=== PATIENT | female | born 1960 | race Caucasian/White ===

== ENCOUNTER → 2017-04-26 | Outpatient (CLI) | payer OTHER ==
[2017-04-26 14:42] LABS: TOTAL 25(OH) VITAMIN D 33.5 NG/ML (30.0-100.0)
[2017-04-26 14:42] LABS: PTH INTACT 36.2 PG/ML (18.5-88.0)
[2017-04-26 15:14] LABS: CALCIUM LEVEL 9.8 MG/DL (8.5-10.1); PHOSPHORUS LEVEL 3.7 MG/DL (2.5-4.9)
== END ==
LOC: M WUC 10:45
DX: M81.0 Age-related osteoporosis without current pathological fracture (principal)
CPT/HCPCS: 82310

== ENCOUNTER 2017-07-28 07:33 | Day surgery (SDC) | payer OTHER ==
[2017-07-28] MEDS ORDERED: PROPOFOL 200 MG/20 ML VIAL As Ordered ×2 (08:12)
[2017-07-28] MEDS ORDERED: LIDOCAINE 2% INJ 100 MG/5 ML SDV (FOR ANES.) As Ordered (08:12)
[2017-07-28] MEDS: NS 1,000 ML IV (08:29)
== END 2017-07-28 10:01 | disposition home or self-care (01) ==
LOC: M OPP 07:33
DX: Z12.11 Encounter for screening for malignant neoplasm of colon (principal); Z86.010 Personal history of colon polyps; K64.8 Other hemorrhoids; K57.30 Diverticulosis of large intestine without perforation or abscess without bleeding; R00.8 Other abnormalities of heart beat; R01.1 Cardiac murmur, unspecified; E78.5 Hyperlipidemia, unspecified; E03.9 Hypothyroidism, unspecified; M19.90 Unspecified osteoarthritis, unspecified site; M51.9 Unspecified thoracic, thoracolumbar and lumbosacral intervertebral disc disorder; M50.30 Other cervical disc degeneration, unspecified cervical region; R51 Headache; M85.80 Other specified disorders of bone density and structure, unspecified site; Z78.0 Asymptomatic menopausal state; F17.210 Nicotine dependence, cigarettes, uncomplicated; Z88.5 Allergy status to narcotic agent; Z88.0 Allergy status to penicillin; Z88.8 Allergy status to other drugs, medicaments and biological substances; Z79.82 Long term (current) use of aspirin; Z79.899 Other long term (current) drug therapy; Z80.0 Family history of malignant neoplasm of digestive organs; Z80.42 Family history of malignant neoplasm of prostate
CPT/HCPCS: 45378

== ENCOUNTER → 2017-10-12 | Outpatient (CLI) | payer OTHER ==
[2017-10-12 14:55] LABS: CALCIUM LEVEL 9.2 MG/DL (8.5-10.1)
[2017-10-12 15:03] LABS: TOTAL 25(OH) VITAMIN D 25.3 NG/ML (30.0-100.0)
== END ==
LOC: M WUC 13:10
DX: M81.0 Age-related osteoporosis without current pathological fracture (principal); E55.9 Vitamin D deficiency, unspecified
CPT/HCPCS: 82310

== ENCOUNTER → 2019-08-09 | Outpatient (CLI) | payer OTHER ==
[~2019-08-09] MED LIST: ALPR0.25 PO; ASPI81TA26 PO; CALC600T57 PO; IBUP80TA PO; LEVO88TA3 PO; ROSU20TA5 PO; VITA100067 PO
--- NOTE | 2019-08-10 10:39 | REP ---
REASON: Atraumatic neck pain. COMPARISON: 02/27/2012 Vertebral body height and alignment is unchanged from the prior exam. There is disc space narrowing seen C4-5 and C5-6. There is an unchanged 2 mm anterolisthesis of C4 on C5. The facet joints are well aligned bilaterally. The intravertebral foramina are unchanged and again seen to be ample bilaterally. There is no evidence of limitation of flexion or extension radiographically. IMPRESSION: Stable-appearing chronic changes. Electronically Signed by Delfino Magaña DO 08/12/2019 10:09 A
--- NOTE | 2019-08-10 10:40 | REP ---
REASON: Back pain. PRIORS: None. There is a moderate dextroconvex upper thoracic curve. The pedicles are intact bilaterally. There is anterior disc space narrowing at every level with mild anterior lipping. Vertebral body height and alignment is within normal limits. IMPRESSION: Chronic changes, as described above. Electronically Signed by Delfino Magaña DO 08/12/2019 10:09 A
--- NOTE | 2019-08-10 10:45 | REP ---
REASON: Chronic low back pain. COMPARISON: 03/09/2015 L4-5 disc space narrowing has increased from the prior exam and there is now universal L5-S1 disc space narrowing as well. Vertebral body height and alignment is unchanged. The pedicles are again seen to be intact bilaterally. There is no spondylolysis or spondylolisthesis. Degenerative facet joint change is again present at L4-5 and L5-S1 bilaterally. IMPRESSION: Chronic changes as described above. Electronically Signed by Delfino Magaña DO 08/12/2019 10:09 A
== END ==
LOC: M RAD 15:44
PROVIDERS: ATTEND Physician Assistant
DX: M54.2 Cervicalgia (principal)

== ENCOUNTER → 2020-08-20 | Outpatient (CLI) | payer OTHER ==
--- NOTE | 2020-08-21 04:11 | REP ---
INDICATION: PAIN COMPARISON: None. TECHNIQUE: AP and frog-lateral views of the left hip FINDINGS: Generalized age-related changes include subtle increased sclerosis to the acetabulum with minimal joint space narrowing. No further overt osteoarthritic or significant degenerative changes are appreciated. No evidence for acute or healed injury. Surrounding soft tissues are normal. IMPRESSION: Mild generalized age-related changes. <Electronically signed by Garett Skinner > 08/21/20 [id number]
--- NOTE | 2020-08-21 04:14 | REP ---
INDICATION: PAIN COMPARISON: None. TECHNIQUE: Single AP view of the pelvis. FINDINGS: Mild symmetric age-related changes to the bilateral hips includes joint space narrowing with minimal increased sclerosis to the acetabula. No acute fracture or dislocation. IMPRESSION: Mild symmetric degenerative changes to the bilateral hips suggested. No acute fracture or dislocation. <Electronically signed by Garett Skinner > 08/21/20 [id number]
== END ==
LOC: M WUC 11:22
PROVIDERS: ATTEND Physician Assistant
DX: M25.552 Pain in left hip (principal); M16.12 Unilateral primary osteoarthritis, left hip

== ENCOUNTER → 2020-12-24 | Outpatient (CLI) | payer OTHER ==
--- NOTE | 2020-12-24 13:33 | REPMRS ---
Patient History The patient states she has not had a clinical breast exam in over a year. Patient is postmenopausal. Family history of colorectal cancer in mother. Tomosynthesis is performed. Volpara breast density is c. Tyrer-Cuzick lifetime risk of breast cancer 6.3%. No breast complaints today Patient signed the MRS sheet 1st vaccine 05/12/20-Moderna 2nd vaccine 06/09/20-patient not sure which side either was in [facility] done @ [facility] Patient Identification Verified Digital Woman Screen Mammo: December 24, 2020 - Exam #: [id number] Bilateral CC and MLO view(s) were taken. Technologist: Debra Lopez, Technologist FINDINGS: The breast tissue is heterogeneously dense. This may lower the sensitivity of mammography. There has been no change in the appearance of the mammogram from the prior studies. There is a moderate amount of residual fibroglandular tissue which is fairly symmetric. There is no interval development of dominant mass, areas of architectural distortion, or clustered microcalcification typical of malignancy. Assessment: BI-RADS/ACR category 1 mammogram. Negative Mammogram. Recommendation Routine screening mammogram in 1 year (for women over age 40). This mammogram was interpreted with the aid of an FDA-approved computer-aided dectection system. Electronically Signed By: Andrews Fisher MD 12/24/20 [id number]
== END ==
LOC: M WHC 11:53
PROVIDERS: ATTEND Internal Medicine
DX: Z12.31 Encounter for screening mammogram for malignant neoplasm of breast (principal); Z80.0 Family history of malignant neoplasm of digestive organs

== ENCOUNTER → 2022-12-14 | Outpatient (CLI) | payer OTHER ==
[~2022-12-14] MED LIST changes: +PRAV40TA2 PO; -ROSU20TA5 PO; +ROSU20TA61 PO
[2022-12-14 18:40] LABS: HEMOGLOBIN A1c 5.9 % (4.0-6.0)
== END ==
LOC: M WUC 10:21
PROVIDERS: ATTEND Internal Medicine
DX: E78.5 Hyperlipidemia, unspecified (principal); R73.01 Impaired fasting glucose; E03.9 Hypothyroidism, unspecified; E55.9 Vitamin D deficiency, unspecified

== ENCOUNTER → 2022-12-16 | Outpatient (CLI) | payer OTHER ==
[2022-12-16 11:15] LABS: ALBUMIN 3.7 G/DL (3.2-5.2); ALKALINE PHOSPHATASE 59 U/L (46-116); ALT/SGPT 15 U/L (7.0-40); AST/SGOT 14 U/L (<34); BILIRUBIN,TOTAL 0.8 MG/DL (0.3-1.2); BLOOD UREA NITROGEN 11 MG/DL (9-23); CALCIUM LEVEL 9.4 MG/DL (8.3-10.6); CARBON DIOXIDE LEVEL 30 MMOL/L (20-31); CHLORIDE LEVEL 107 MMOL/L (98-107); CHOLESTEROL LEVEL 211 MG/DL (<200); CHOLESTEROL RISK RATIO 2.67 (<5); CREATININE FOR GFR 0.67 MG/DL (0.55-1.30); GLOMERULAR FILTRATION RATE > 60.0 (>45); GLUCOSE, FASTING 111 MG/DL (74-106); POTASSIUM SERUM 4.1 MMOL/L (3.5-5.1); SODIUM LEVEL 141 MMOL/L (136-145); THYROID STIMULATING HORMONE 1.516 uIU/ML (0.55-4.78); TOTAL PROTEIN 6.6 G/DL (5.7-8.2); TRIGLYCERIDES LEVEL 90 MG/DL (<150)
[2022-12-16 11:16] LABS: TOTAL 25(OH) VITAMIN D 28.2 NG/ML (20.0-100.0)
== END ==
LOC: M LAB 10:06
PROVIDERS: ATTEND Internal Medicine
DX: E78.5 Hyperlipidemia, unspecified (principal); R73.01 Impaired fasting glucose; E03.9 Hypothyroidism, unspecified; E55.9 Vitamin D deficiency, unspecified

== ENCOUNTER → 2024-02-16 | Outpatient (CLI) | payer MEDICARE, OTHER ==
[~2024-02-16] MED LIST changes: -ROSU20TA61 PO; +ROSU20TA86 PO
== END ==
LOC: M WHC 13:52
PROVIDERS: ATTEND Internal Medicine
DX: Z12.31 Encounter for screening mammogram for malignant neoplasm of breast (principal); E55.9 Vitamin D deficiency, unspecified; R92.333 Mammographic heterogeneous density, bilateral breasts; R92.8 Other abnormal and inconclusive findings on diagnostic imaging of breast; M81.0 Age-related osteoporosis without current pathological fracture; M85.89 Other specified disorders of bone density and structure, multiple sites

== ENCOUNTER → 2024-03-11 | Outpatient (CLI) | payer MEDICARE, OTHER | LOC: M WHC 13:15 | PROVIDERS: ATTEND Internal Medicine | DX: R92.331 Mammographic heterogeneous density, right breast (principal) | CPT/HCPCS: 76642; 77065; G0279 ==